=== PATIENT | female | born 1985 | race Hispanic/Latino ===

== ENCOUNTER 2018-10-23 23:24 | Emergency (ER) | payer OTHER ==
--- NOTE | 2018-10-24 00:47 | C.PDOC ---
History Of Present Illness 33 year old female presents to the ED c/o left 4th finger pain and swelling. 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 Patient reports that she is right hand dominant. Patient denies weakness, numbness, other injuries. Time Seen by Provider: 10/24/18 00:21 Chief Complaint (Nursing): Finger,Hand,&Wrist History Per: Patient History/Exam Limitations: no limitations Onset/Duration Of Symptoms: Mins (30) Current Symptoms Are (Timing): Still Present Quality: "Pain" Exacerbating Factor(s): Strenuous Use Of Affected Area, Movement Recent travel outside of the [place]: No Additional History Per: Patient Past Medical History Reviewed: Historical Data, Nursing Documentation, Vital Signs Vital Signs: Last Vital Signs Temp 98.2 F 10/23/18 23:59 Pulse 77 10/23/18 23:59 Resp 16 10/23/18 23:59 BP 120/84 10/23/18 23:59 Pulse Ox 99 10/23/18 23:59 - Medical History PMH: Asthma Surgical History: No Surg Hx Family History: States: Unknown Family Hx - Social History Hx Alcohol Use: No Hx Substance Use: No - Immunization History Hx Influenza Vaccination: No Hx Pneumococcal Vaccination: No Review Of Systems Constitutional: Negative for: Fever, Chills Gastrointestinal: Negative for: Vomiting, Diarrhea Musculoskeletal: Positive for: Hand Pain. Negative for: Arm Pain Skin: Negative for: Rash Neurological: Negative for: Weakness, Numbness, Headache, Dizziness Physical Exam - Physical Exam Appears: Non-toxic, No Acute Distress Skin: Normal Color, Warm, Dry, No Rash Head: Atraumatic, Normacephalic Eye(s): bilateral: Normal Inspection Oral Mucosa: Moist Neck: Normal ROM, Supple Chest: Symmetrical Respiratory: No Accessory Muscle Use Extremity: No Normal ROM (limited left 4th finger due to pain), Tenderness (tenderness and mild swelling to the proximal left 4th finger), Capillary Refill (< 2 seconds) Pulses: Left Radial: Normal, Right Radial: Normal Neurological/Psych: Oriented x3, Normal Motor, Normal Sensation Gait: Steady ED Course And Treatment O2 Sat by Pulse Oximetry: 99 (on Ra) Pulse Ox Interpretation: Normal Medical Decision Making Medical Decision Making: Xray is negative for fracture or dislocation. Finger splint was applied by roadway technician and checked by ,me. Disposition - Disposition Referrals: Tania Ernst MD [Staff Provider] - Disposition: HOME/ ROUTINE Disposition Time: 02:00 Condition: STABLE Additional Instructions: Follow up with the Hand doctor within 1-2 days Prescriptions: Naproxen [Naprosyn] 500 mg PO BID #20 tab Instructions: Common Finger Injuries (DC) Forms: [facility] (Belgian), Work Excuse - Clinical Impression Clinical Impression: Finger sprain
[2018-10-24 02:26] VITALS: BP 117/80; PULSE 68; RESP 18; TEMP 97.6
[2018-10-24 06:04] VITALS: O2SAT 99
--- NOTE | 2018-10-24 07:50 | RAD ---
Date of service: 10/24/2018 PROCEDURE: Left ring finger radiographs. HISTORY: finger injury, pain to prox phalanx and 4th MC COMPARISON: None. TECHNIQUE: AP radiograph of the left hand, as well as spot oblique and lateral images of index finger were obtained. 4 views obtained. FINDINGS: LEFT RING FINGER: A small minimally comminuted volar fracture with possible intra-articular extension of the 4th proximal phalanx is suggested. JOINTS: Normal. SOFT TISSUES: Swelling OTHER FINDINGS: None. IMPRESSION: Minimally comminuted nondisplaced fracture volar aspect 4th proximal phalanx-possible intra-articular extension. Soft tissue swelling present. Comments: Study marked for PA review .
== END 2018-10-24 02:26 | disposition home or self-care (01) ==
LOC: C.ER 23:24
DX: S63.615A Unspecified sprain of left ring finger, initial encounter (principal); W22.8XXA Striking against or struck by other objects, initial encounter